=== PATIENT | male | born 1965 | race Caucasian/White ===

== ENCOUNTER 2021-08-26 10:58 | Outpatient (CLI) | payer BC, SELFPAY ==
[2021-08-26 11:27] LABS: Basophils Percent Auto 2.1 % (0.0-1.0); Eosinophils Absolute Auto 0.94 K/mm3 (0.02-0.50); Eosinophils Percent Auto 9.8 % (1.0-6.0); Hemoglobin 17.8 g/dL (14.0-18.0); Immature Granulocyte Absolute 0.08 K/mm3 (0.00-0.00); Immature Granulocyte Percent A 0.8 % (0.0-0.0); Lymphocytes Absolute Auto 2.66 K/mm3 (1.10-4.50); Lymphocytes Percent Auto 27.8 % (18.0-42.0); Mean Corpuscular HGB Conc 35.6 g/dL (32.0-36.0); Mean Corpuscular Hemoglobin 31.2 pg (27.0-31.0); Mean Corpuscular Volume 87.7 fL (78.0-102.0); Mean Platelet Volume 9.9 fl (8.7-11.0); Monocytes Absolute Auto 0.55 K/mm3 (0.10-0.90); Monocytes Percent Auto 5.7 % (2.0-11.0); Neutrophils Absolute Auto 5.1 K/mm3 (1.7-7.2); Neutrophils Percent Auto 53.8 % (50.0-70.0); Platelet Count Result 272 K/mm3 (150-420); Red Cell Distribution Width 14.2 % (11.6-14.4); White Blood Count 9.6 K/mm3 (4.8-10.8)
[2021-08-26 11:43] LABS: Alanine Aminotransferase 32 U/L (16-63); Albumin Level 4.2 g/dL (3.4-5.0); Alkaline Phosphatase 76 U/L (46-116); Anion Gap 9 mmol/L (8-16); Aspartate Amino Transferase 11 U/L (15-37); Bilirubin,Total 0.5 mg/dL (0.00-1.00); Blood Urea Nitrogen 14 mg/dL (7-18); Calcium 9.5 mg/dL (8.5-10.1); Carbon Dioxide 29 mmol/L (21-32); Chloride 100 mmol/L (98-108); Estimated Glomerular Filt Rate > 60; Glucose 104 mg/dL (70-99); Magnesium 2.2 mg/dL (1.8-2.4); Osmolality Calculated 286 mOsm/kg (285-295); Phosphorus 3.3 mg/dL (2.6-4.7); Potassium 4.6 mmol/L (3.5-5.1); Sodium 138 mmol/L (136-145); Total Protein 7.6 g/dL (6.4-8.2)
== END 2021-08-26 10:59 | disposition home or self-care (01) ==
PROVIDERS: PCP Nurse Practitioner Family; Visit Provider Nurse Practitioner Family
DX: I61.9 Nontraumatic intracerebral hemorrhage, unspecified (principal); G45.9 Transient cerebral ischemic attack, unspecified
CPT/HCPCS: 36415; 80053; 83735; 84100; 85025

== ENCOUNTER 2021-08-27 08:32 | Outpatient (CLI) | payer BC, SELFPAY ==
--- NOTE | ~2021-08-27 | CT_ITS ---
EXAMINATION: CT brain wo con EXAM DATE: 08/27/2021 08:49 INDICATION: I61.9 - Nontraumatic intracerebral hemorrhage, unspecified. Headaches. Intermittent. Left arm paresthesia. TECHNIQUE: Spiral CT of the head was performed without contrast. Axial, coronal and sagittal images were reviewed. The dose-length product (DLP) for this examination was 605.33 mGy-cm. The exposure w as tailored according to patient size, and iterative reconstruction (ASIR) was used as additional dos e reduction technique. There is no prior study for comparison. FINDINGS: There is no acute intraparenchymal hemorrhage. No evidence of intraparenchymal brain mass lesion. No evidence of acute infarction. There is no mass effect or midline shift. The ventricles are normal in size. There are no extra-axial collections. There are no acute calvarial fractures. T he orbits are unremarkable. Soft tissue is unremarkable. The visualized sinuses and mastoid air jagruti ls are well aerated. IMPRESSION: No acute intracranial findings. Reviewed, dictated and finalized at location A. [employer]
== END 2021-08-27 08:33 | disposition home or self-care (01) ==
PROVIDERS: PCP Nurse Practitioner Family; Visit Provider Nurse Practitioner Family
DX: I61.9 Nontraumatic intracerebral hemorrhage, unspecified (principal); G45.9 Transient cerebral ischemic attack, unspecified
CPT/HCPCS: 70450

== ENCOUNTER 2021-10-22 11:46 | Outpatient (CLI) | payer BC, SELFPAY ==
--- NOTE | ~2021-10-22 | XR_ITS ---
EXAMINATION: XR knee RT 3V DATE: 10/22/2021 12:02 INDICATION: Right knee pain TECHNIQUE: Three views of the right knee were obtained. COMPARISON: None. FINDINGS: Alignment is normal. No fracture or osteochondral lesion. Joint spaces are normal with no e rosions. No joint effusion/synovitis. Soft tissues are unremarkable. IMPRESSION: 1. No acute osseous abnormality. Reviewed, dictated and finalized at location B.
== END 2021-10-22 11:47 | disposition home or self-care (01) ==
LOC: CHSIMG 11:48
PROVIDERS: PCP Nurse Practitioner Family; Visit Provider Nurse Practitioner Family
DX: M25.561 Pain in right knee (principal)
CPT/HCPCS: 73562

== ENCOUNTER 2021-11-02 07:48 | Outpatient (CLI) | payer BC, SELFPAY ==
--- NOTE | ~2021-11-02 | MR_ITS ---
EXAMINATION: MR knee RT wo con DATE: 11/02/2021 09:41 INDICATION: Right knee pain. TECHNIQUE: Magnetic resonance imaging (MRI) of the right knee was performed without intravenous contr ast. Sequences included axial PD-weighted FS FSE, coronal PD-weighted FSE and PD-weighted FS FSE, sag ittal PD-weighted FSE, and sagittal T2-weighted FS FSE. COMPARISON: Right knee radiographs 10/22/2021 FINDINGS: Medial compartment: Medial meniscus is normal. There is cartilage surface irregularity of femoral condyle and tibial cond yle. Lateral compartment: Lateral meniscus is normal. There is cartilage surface irregularity of tibial condyle. Femoral cartil age is normal. Patellofemoral compartment: Patellar cartilage is normal. Trochlear cartilage is normal. Ligaments and tendons: The anterior and posterior cruciate ligaments are normal. Medial collateral ligament and lateral benjamin ateral ligament complex are normal. There is mild patellar tendinopathy. Fluid: There is a small knee joint effusion. Osseous/other: There is edema-like marrow signal intensity in medial tibial condyle and intercondylar eminence. IMPRESSION: 1. Edema-like marrow signal intensity in medial tibial condyle and intercondylar eminence, likely str ess reaction. No fracture line identified. 2. Mild chondrosis of medial and lateral compartments. 3. Small knee joint effusion. Reviewed, dictated and finalized at location E. IMPRESSION: 1. Edema-like marrow signal intensity in medial tibial condyle and intercondyla r eminence, likely stress reaction. No fracture line identified. 2. Mild chondrosis of medial and lateral compartments. 3. Small knee joint effusion.
== END 2021-11-02 07:49 | disposition home or self-care (01) ==
LOC: CHSIMG 07:49
PROVIDERS: PCP Nurse Practitioner Family; Visit Provider Nurse Practitioner Family
DX: M25.561 Pain in right knee (principal)
CPT/HCPCS: 73721

== ENCOUNTER 2022-01-22 12:18 | Outpatient (CLI) | payer BC, SELFPAY ==
[2022-01-22 12:37] LABS: Basophils Absolute Auto 0.13 K/mm3 (0.00-0.10); Basophils Percent Auto 1.3 % (0.0-1.0); Eosinophils Absolute Auto 0.57 K/mm3 (0.02-0.50); Eosinophils Percent Auto 5.7 % (1.0-6.0); Hematocrit 47.2 % (40.0-54.0); Hemoglobin 16.7 g/dL (14.0-18.0); Immature Granulocyte Absolute 0.08 K/mm3 (0.00-0.00); Immature Granulocyte Percent A 0.8 % (0.0-0.0); Lymphocytes Absolute Auto 1.32 K/mm3 (1.10-4.50); Lymphocytes Percent Auto 13.1 % (18.0-42.0); Mean Corpuscular HGB Conc 35.4 g/dL (32.0-36.0); Mean Corpuscular Hemoglobin 30.9 pg (27.0-31.0); Mean Corpuscular Volume 87.2 fL (78.0-102.0); Mean Platelet Volume 9.6 fl (8.7-11.0); Monocytes Absolute Auto 0.61 K/mm3 (0.10-0.90); Monocytes Percent Auto 6.1 % (2.0-11.0); Neutrophils Absolute Auto 7.4 K/mm3 (1.7-7.2); Platelet Count Result 232 K/mm3 (150-420); Red Blood Count 5.41 M/mm3 (4.70-6.10); Red Cell Distribution Width 14.3 % (11.6-14.4); White Blood Count 10.1 K/mm3 (4.8-10.8)
[2022-01-22 13:00] LABS: Alanine Aminotransferase 35 U/L (16-63); Alkaline Phosphatase 87 U/L (46-116); Anion Gap 9 mmol/L (8-16); Aspartate Amino Transferase 20 U/L (15-37); Blood Urea Nitrogen 13 mg/dL (7-18); Calcium 8.8 mg/dL (8.5-10.1); Carbon Dioxide 27 mmol/L (21-32); Chloride 101 mmol/L (98-108); Cholesterol 193 mg/dL (0-200); Estimated Glomerular Filt Rate 58; Glucose 102 mg/dL (70-99); HDL Direct 40 mg/dL (40-60); LDL Cholesterol Calculated 99 mg/dL (<130); Osmolality Calculated 284 mOsm/kg (285-295); Potassium 3.5 mmol/L (3.5-5.1); Sodium 137 mmol/L (136-145); Total Protein 7.6 g/dL (6.4-8.2); Triglycerides 272 mg/dL (0-150)
== END 2022-01-22 12:19 | disposition home or self-care (01) ==
LOC: CHSLAB 12:20
PROVIDERS: PCP Nurse Practitioner Family; Visit Provider Nurse Practitioner Family
DX: G45.9 Transient cerebral ischemic attack, unspecified (principal); E87.1 Hypo-osmolality and hyponatremia; E83.42 Hypomagnesemia
CPT/HCPCS: 36415; 80053; 80061; 83735; 85025

== ENCOUNTER 2022-02-20 06:34 | Outpatient (CLI) | payer BC, SELFPAY ==
[2022-02-20 08:08] LABS: Basophils Absolute Auto 0.2 K/mm3 (0.0-0.1); Basophils Percent Auto 1.5 % (0.2-1.2); Eosinophils Absolute Auto 1.2 K/mm3 (0-0.3); Eosinophils Percent Auto 9.7 % (0-4.4); Hematocrit 48.3 % (42.0-52.0); Hemoglobin 16.5 g/dL (14.0-18.0); Immature Granulocyte Absolute 0.11 K/mm3 (0.00-0.031); Immature Granulocyte Percent A 0.9 % (0-0.5); Lymphocytes Absolute Auto 3.31 K/mm3 (0.9-3.2); Lymphocytes Percent Auto 28.1 % (18.3-44.2); Mean Corpuscular HGB Conc 34.2 g/dl (32-36); Mean Corpuscular Hemoglobin 30.7 pg (26-34); Mean Corpuscular Volume 89.9 fl (80-100); Mean Platelet Volume 9.8 fl (7.4-10.4); Monocytes Absolute Auto 0.7 K/mm3 (0.1-0.6); Monocytes Percent Auto 5.9 % (2.6-8.5); Neutrophils Absolute Auto 6.4 K/mm3 (1.3-6.7); Neutrophils Percent Auto 53.9 % (45.5-73.1); Platelet Count Result 244 k/mm3 (150-375); Red Blood Count 5.37 M/mm3 (4.6-6.20); Red Cell Distribution Width 14.9 % (11.5-14.5); White Blood Count 11.8 K/mm3 (4.5-10.0)
[2022-02-20 08:17] LABS: Alanine Aminotransferase 30 U/L (6-50); Albumin Level 4.2 g/dL (3.5-5.1); Alkaline Phosphatase 64 U/L (38-126); Anion Gap 6 mmol/L (8-16); Aspartate Amino Transferase 27 U/L (17-59); Bilirubin,Total 0.7 mg/dL (0.2-1.3); Blood Urea Nitrogen 15 mg/dL (9-20); Carbon Dioxide 27 mmol/L (22-30); Chloride 104 mmol/L (98-107); Estimated Glomerular Filt Rate > 60; Glucose 108 mg/dL (65-110); Potassium 4.7 mmol/L (3.4-5.0); Sodium 137 mmol/L (137-145)
--- NOTE | 2022-02-20 10:45 | NEURO_ITS ---
This report was moved to the correct visit on 02/20/22. Original report was signed by Yovanny Cohen MD 02/20/22 [id number]. Neurology EEG Report General Information Date of Study: 02/20/22 TEST EEG DIAGNOSIS amnesia CONDITION OF RECORDING awake drowsy and sleep EEG NUMBER [id number] CLINICAL HISTORY patient reports he had a brain bleed about a year ago and is having trouble with short-term memory EEG DESCRIPTION basic resting occipital frequency consists of large amount of well-organized 9 to 11 hertz per 2nd alpha admixed with low-voltage 15 to 18 hertz per 2nd beta. During drowsiness low-voltage beta activity seen diffusely admixed with waxing and waning posterior alpha rhythm. Bilateral symmetrical sleep activity seen during sleep, hyperventilation not done. Photic stimulation produced normal drive. Non paroxysmal. Nonfocal. Nonlateralizing., IMPRESSION Normal eeg This dictation may have been done utilizing a voice recognition system. Attempts have been made to correct errors. However, there may be uncorrected grammatical, spelling, and recognition errors present. Report Initialized date/time: Yovanny Cohen MD 02/20/22 / 1045 Electronically signed by: Yovanny Cohen MD 02/20/22 2152 [facility]
== END 2022-02-20 06:35 | disposition home or self-care (01) ==
PROVIDERS: PCP Nurse Practitioner Family; Visit Provider Psychiatry & Neurology Neurology
DX: R41.3 Other amnesia (principal)
CPT/HCPCS: 36415; 80053; 85025; 95816

== ENCOUNTER 2022-02-23 10:30 | Outpatient (CLI) | payer BC, SELFPAY ==
--- NOTE | 2022-02-20 10:41 | WPDNEUROLOGY ---
Neurology EEG Report General Information Date of Study: 02/20/22 TEST EEG DIAGNOSIS amnesia CONDITION OF RECORDING awake drowsy and sleep EEG NUMBER [id number] CLINICAL HISTORY patient reports he had a brain bleed about a year ago and is having trouble with short-term memory EEG DESCRIPTION basic resting occipital frequency consists of large amount of well-organized 9 to 11 hertz per 2nd alpha admixed with low-voltage 15 to 18 hertz per 2nd beta. During drowsiness low-voltage beta activity seen diffusely admixed with waxing and waning posterior alpha rhythm. Bilateral symmetrical sleep activity seen during sleep, hyperventilation not done. Photic stimulation produced normal drive. Non paroxysmal. Nonfocal. Nonlateralizing., IMPRESSION Normal eeg
--- NOTE | ~2022-02-23 | MR_ITS ---
EXAMINATION: MR brain/brain stem wo/w con DATE: 02/23/2022 11:22 INDICATION: Memory loss TECHNIQUE: Magnetic resonance imaging (MRI) of the brain and brainstem was performed without and with 20 mL Multihance intravenous contrast. Sequences included sagittal and axial T1-weighted SE, axial d iffusion-weighted FS SE, axial 3D SWAN, axial T2-weighted FLAIR, and axial T2-weighted FSE. Postcontr ast axial and coronal T1-weighted SE was obtained. Apparent diffusion coefficient (ADC) maps were cre ated. COMPARISON: Head CT dated 08/27/2021 FINDINGS: There are no areas of restricted diffusion to suggest acute infarction. No intracranial hemorrhage or abnormal intracranial mass lesion. There are a few scattered small foci of nonspecific increased T2- weighted signal intensity in the cerebral white matter, predominantly involving the deep and perivent ricular white matter which is within normal limits for age. There are no intraparenchymal signal abno rmalities seen on the other pulse sequences. The ventricles are symmetric and normal in size. There a re no abnormal extra-axial fluid collections. Flow voids are seen in the cerebral arteries on the T2- weighted sequences consistent with their expected patency. Mild mucoperiosteal thickening in the bila teral ethmoid sinuses. Visualized orbits and soft tissues are unremarkable. There are no areas of abn ormal enhancement on the post contrast images. IMPRESSION: 1. Normal for age brain MR. No acute intracranial process. Reviewed, dictated and finalized at location A.
== END 2022-02-23 10:31 | disposition home or self-care (01) ==
PROVIDERS: PCP Nurse Practitioner Family; Visit Provider Psychiatry & Neurology Neurology
DX: R41.3 Other amnesia (principal)
CPT/HCPCS: 70553; A9577

== ENCOUNTER 2023-10-27 10:59 | Outpatient (CLI) | payer OTHER, SELFPAY ==
--- NOTE | ~2023-10-27 | XR_ITS ---
XR lumbar spine 2-3V 10/27/2023 11:19 Indication: Back pain. Sciatica. Procedure: 3 views lumbar spine Comparison: No prior studies for comparison. Findings: Vertebral body heights are maintained. There is disc narrowing at all lumbar levels. No fra cture or traumatic malalignment. Pedicles intact. Sacral foramen are symmetric. Impression: 1: Mild-moderate lumbar spondylosis. Reviewed, dictated and finalized at location L. Impression: 1: Mild-moderate lumbar spondylosis.
== END 2023-10-27 11:00 | disposition home or self-care (01) ==
LOC: CHSIMG 11:03
PROVIDERS: PCP Nurse Practitioner Family; Visit Provider Nurse Practitioner Family
DX: M54.41 Lumbago with sciatica, right side (principal); M43.06 Spondylolysis, lumbar region
CPT/HCPCS: 72100

== ENCOUNTER 2025-05-02 12:22 | Outpatient (CLI) | payer BC, SELFPAY ==
--- OUTSIDE RECORDS SUMMARY | 2024-12-29 04:00 | XMS_ITS ---
Author Organization [facility] Address [address] [place], [place] [id number] Care Team Providers Care Manufacturing Operator Name Role Phone CUADRAVALERIE SERARNO Unavailable [phone] Amanda Bautista Unavailable Unavailable Allergies Allergen (clinical drug ingredient) Drug/Non Drug Allergy documented on EMR Reaction Allergy Type Onset Date Status Penicillin Unknown Drug Allergy Active REASON FOR VISIT ganglion left ankle and foot Medications Medication SIG (Take, Route, Frequency, Duration) Notes Start Date End Date Status LORazepam 1 MG Oral; Duration: 20 Days Active QUEtiapine Fumarate 200 MG Oral; Duration: 30 Days Active Meloxicam 15 MG Oral; Duration: 30 Days Active Vital Signs Height 69 in 12/29/2024 Weight 220 lbs 12/29/2024 BMI 32.48 kg/m2 12/29/2024 Height-cm 175.26 cm 12/29/2024 Weight-kg 99.79 kg 12/29/2024 Encounters Encounter Location Date Provider Diagnosis [address] [id number] 12/29/2024 VALERIE CUADRA Plantar fascial fibromatosis M72.2 ; Hallux rigidus, left foot M20.22 and Pain in right foot M79.671 Assessments Encounter Date Diagnosis (ICD Code) Assessment Notes Treatment Notes Treatment Clinical Notes Section Notes 12/29/2024 Plantar fascial fibromatosis (ICD-10 - M72.2) Heel Pain: I discussed anti-inflammato ry treatment options and various means of pronation control with the patient. I educated the patient on icing and stretching, supportive shoegear, and the use of orthotic devices. Following skin prep, a total of 3 ccs of a 1-1-1 mix of 0.5% marcaine plain, 1% lidocaine plain, and Kenalog was injected left origin of plantar fascial band 12/29/2024 Hallux rigidus, left foot (ICD-10 - M20.22) Did not have size 13 pre-fabricated arch supports. Patient will purchase online and transition into use in supportive shoes. Educated patient on their use. Consider boots or ankle brace at work where he walks 8 miles on concrete and gets increased pain from back and feet during shifts. 12/29/2024 Pain in right foot (ICD-10 - M79.671) rest ice and stretch daily. Patient was instructed to try an OTC topical pain reliever/anti-i nflammatory such as Voltaren Gel, Aspercreme with Lidocaine, or Biofreeze etc over the affected areas. Spot test on hand or somewhere visible prior to starting to watch for possible rash/allergic reaction Plan Of Treatment Treatment Notes Assessment Notes Plantar fascial fibromatosis Heel Pain: I discussed anti-inflammatory treatment options and various means of pronation control with the patient. I educated the patient on icing and stretching, supportive shoegear, and the use of orthotic devices. Following skin prep, a total of 3 ccs of a 1-1-1 mix of 0.5% marcaine plain, 1% lidocaine plain, and Kenalog was injected left origin of plantar fascial band Hallux rigidus, left foot Did not have size 13 pre-fabricated arch supports. Patient will purchase online and transition into use in supportive shoes. Educated patient on their use. Consider boots or ankle brace at work where he walks 8 miles on concrete and gets increased pain from back and feet during shifts. Pain in right foot rest ice and stretch daily. Patient was instructed to try an OTC topical pain reliever/anti-inflammatory such as Voltaren Gel, Aspercreme with Lidocaine, or Biofreeze etc over the affected areas. Spot test on hand or somewhere visible prior to starting to watch for possible rash/allergic reaction Progress Notes * Ki BRODYDOB: [birth year] (59 yo M)Acc No.[id number]:12/29/2024 Progress Notes Patient: Ki NATION Provider: Walter CUADRA DOB:1965 A ge:59 Y S ex:Male Date:12/29/2024 Address:[address] Subjective: * Chief Complaints: * 1 . Ganglion left ankle and foot. * HPI: H PI: New Complaint P nabil presents for a new patient consultation. Patient complains of an issue to a possible ganglion cyst on the bottom of his left foot. Patient states this has been present for 1 year and has grown in size over time. Patient states they lump does not cause him any pain, but he has developed some pain in the ball of his foot from compensating to not step of spot. MA LB. * ROS: G eneral / Constitutional: Patient denies f ever, chills, weight loss. P atient complains of p ain. M usculoskeletal: Patient complains of b ack pain, arthritis, joint stiffness, heel pain, arch pain, high arch feet/ cavus. P eripheral Vascular: Patient denies b lood clots in legs, cold extremities, ulceration of feet. S kin: Patient denies a thletes foot, fungal nails, itching, discoloration, rash. P atient complains of l umps. N eurologic: Patient denies b alance difficulty, Numbness. ? * Medical History: Andrew ramirez. * Surgical History: h emmorrhoidectomy . * Family History: N o Family History documented.. * Social History: D rugs/Alcohol: D o you drink alcohol?: Yes. * Medications: T aking Meloxicam 15 MG Tablet Oral , Taking QUEtiapine Fumarate 200 MG Tablet Oral , Taking LORazepam 1 MG Tablet Oral , Medication List reviewed and reconciled with the patient * Allergies: P enicillin. Objective: * Vitals: S hoe Size: 13, Wt:220lbs, Wt-k.79 kg, Ht: 69 in, Ht-cm: 175.26 cm, BMI:32.48Index, Body Surface Area: 2.2. * Examination: C onstitutional: Constitutional T he patient is awake, alert, well developed, well groomed and well nourished.. D ermatologic: Skin findings: l eft, foot with single soft tissue lesion measures 2x2x0.2 cm protrusion along medial plantar fascial band moving with ROM of 1st mtpj without pain. Pain on direct pressure/ palpation and weight bearing. No palpable heat or secondary lesions or bony changes noted. No lesions over joints. . M usculoskeletal: Muscle Strength M uscle strength is 5/5 in regards to dorsiflexion, plantarflexion, inversion, and eversion in bilateral lower extremities.. Foot Structure T he foot structure is noted to be f lexible c avus bilateral.. Pain on palpation T here is pain on palpation of, medial band of the left plantar fascia near its attachment to the calcaneus.. Plantar Fascia T here is pain on palpation to the, medial band of the left plantar fascia, near its attachment to the calcaneus., There is mild pain on palpationwith lateral compression of the left calcaneus. No pain on ROM to ankle or STJ which is full..? 1st MPJ T he range of motion is, limited, painful at end range of dorsiflexion left foot.. N eurologic: Gross sensation G ross sensation is intact to light touch.? V ascular: Dorsalis pedis pulse: b ilateral, 2/4. Posterior tibial pulse: b ilaterally, 2/4. Capillary refill: b ilaterally, less than 3 seconds. Edema: n o edema. X -Ray: Left Foot R x for 3 views (AP, Medial Oblique, and lateral view) weightbearing of the left foot to be done at outside facility and bring report to next visit..? Assessment: * Assessment: 1. P lantar fascial fibromatosis - M72.2 (Primary) 2 . H allux rigidus, left foot - M20.22 3 . P ain in right foot - M79.671 Plan: * Treatment: 2. H allux rigidus, left foot Notes: Did not have size 13 pre-fabricated arch supports. Patient will purchase online and transition into use in supportive shoes. Educated patient on their use. Consider boots or ankle brace at work where he walks 8 miles on concrete and gets increased pain from back and feet during shifts. 3. P ain in right foot Notes: rest ice and stretch daily. Patient was instructed to try an OTC topical pain reliever/anti-inflammatory such as Voltaren Gel, Aspercreme with Lidocaine, or Biofreeze etc over the affected areas. Spot test on hand or somewhere visible prior to starting to watch for possible rash/allergic reaction * Immunizations: Immunization record has been reviewed and updated. * Procedure Codes: 2 0550 INJ TENDON SHEATH/LIGAMENT, Modifiers: RT * Preventive Medicine: Counseling: S moking: P atient counselled on the dangers of tobacco use and urged to quit. 0 12/29/2024. * Billing Information: * Visit Code: 77250 Office Visit, New Pt., Level 3. Modifiers: 25 * Procedure Codes: 18535 INJ TENDON SHEATH/LIGAMENT. Modifiers: RT * Electronic signature of DEBORA CUADRA DPM on 05/02/2025 at 12:26 PM CDT Sign off status: Pending * Provider: Walter CUADRA Date: 0 12/29/2024 Generated for Arleen barboza/Michelle/eTransmitting on: 0 05/02/2025 12:26 PM CDT History and Physical Notes * HPI (History of Present Illness) Category Sub-Category Detail Notes Category Not es HPI New Complaint Patient presents for a new patient consultation. Patient complains of an issue to a possible ganglion cyst on the bottom of his left foot. Patient states this has been present for 1 year and has grown in size over time. Patient states they lump does not cause him any pain, but he has developed some pain in the ball of his foot from compensating to not step of spot. MA LB Examination Category Sub-Category Detail Notes Category Not es Constitutional Constitutional The patient is a wake, alert, well developed, well groomed and well nourished. Dermatologic Skin findings: left, foot with single soft tissue lesion measures 2x2x0.2 cm protrusion along medial plantar fascial band moving with ROM of 1st mtpj without pain. Pain on direct pressure/ palpation and weight bearing. No palpable heat or secondary lesions or bony changes noted. No lesions over joints. Musculoskeletal Muscle Strength Muscle strength is 5/5 in regards to dorsiflexion, plantarflexion, inversion, and eversion in bilateral lower extremities. Pain on palpation There is pain on pal pation of, medial band of the left plantar fascia near its attachment to the calcaneus. Plantar Fascia There is pain on pal pation to the, medial band of the left plantar fascia, near its attachment to the calcaneus., There is mild pain on palpationwith lateral compression of the left calcaneus. No pain on ROM to ankle or STJ which is full. 1st MPJ The range of motion is, limited, painful at end range of dorsiflexion left foot. Foot Structure The foot structure i s noted to be flexible cavus bilateral. Neurologic Gross sensation Gross sensation is intact to light touch X-Ray Left Foot Rx for 3 views ( AP, Medial Oblique, and lateral view) weightbearing of the left foot to be done at outside facility and bring report to next visit. Vascular Dorsalis pedis pulse: bilateral, 2/4 Posterior tibial pulse: bilaterally, 2/4 Capillary refill: bilaterally, less th an 3 seconds Edema: no edema
--- OUTSIDE RECORDS SUMMARY | 2025-01-19 03:40 | XMS_ITS ---
Author Organization [facility] Address [address] [place], [place] [address] Care Team Providers Care Linoleum Layer Helper Name Role Phone VENECIAVALERIE Unavailable [phone] Amanda Bautista Unavailable Unavailable Allergies Allergen (clinical drug ingredient) Drug/Non Drug Allergy documented on EMR Reaction Allergy Type Onset Date Status Penicillin Unknown Drug Allergy Active REASON FOR VISIT Plantar fasciitis fu Medications Medication SIG (Take, Route, Frequency, Duration) Notes Start Date End Date Status LORazepam 1 MG Oral; Duration: 20 Days Active QUEtiapine Fumarate 200 MG Oral; Duration: 30 Days Active Meloxicam 15 MG Oral; Duration: 30 Days Active Vital Signs Height 69 in 01/19/2025 Weight 220 lbs 01/19/2025 BMI 32.48 kg/m2 01/19/2025 Height-cm 175.26 cm 01/19/2025 Weight-kg 99.79 kg 01/19/2025 Encounters Encounter Location Date Provider Diagnosis [address] [id number] 01/19/2025 VALERIE CUADRA Hallux rigidus, left foot M20.22 ; Plantar fascial fibromatosis M72.2 ; Pain in right foot M79.671 ; Atherosclerosis of [place] arteries of extremities with intermittent claudication, bilateral legs I70.213 and Tinea unguium B35.1 Assessments Encounter Date Diagnosis (ICD Code) Assessment Notes Treatment Notes Treatment Clinical Notes Section Notes 01/19/2025 Hallux rigidus, left foot (ICD-10 - M20.22) Did not have size 13 pre-fabricated arch supports. Patient purchased online and transition into use in supportive shoes. Educated patient on their use. Consider boots or ankle brace at work where he walks 8 miles on concrete and gets increased pain from back and feet during shifts. 01/19/2025 Plantar fascial fibromatosis (ICD-10 - M72.2) Heel Pain: I discussed anti-inflammat ory treatment options and various means of pronation control with the patient. I educated the patient on icing and stretching, supportive shoegear, and the use of orthotic devices. Discussed boots during work 01/19/2025 Pain in right foot (ICD-10 - M79.671) rest ice and stretch daily. Patient was instructed to try an OTC topical pain reliever/anti- inflammatory such as Voltaren Gel, Aspercreme with Lidocaine, or Biofreeze etc over the affected areas. Spot test on hand or somewhere visible prior to starting to watch for possible rash/allergic reaction 01/19/2025 Atherosclerosis of [place] arteries of extremities with intermittent claudication, bilateral legs (ICD-10 - I70.213) Check and protect LE bilateral daily. Call if any changes or concerns. 01/19/2025 Tinea unguium (ICD-10 - B35.1) FUNGAL TOENAILS: Discussed various treatment options for fungal toenails including debridement, topical antifungals, oral antifungals, toenail avulsion, or toenail matrixectomy. Plan Of Treatment Treatment Notes Assessment Notes Hallux rigidus, left foot Did not have size 13 pre-fabricated arch supports. Patient purchased online and transition into use in supportive shoes. Educated patient on their use. Consider boots or ankle brace at work where he walks 8 miles on concrete and gets increased pain from back and feet during shifts. Plantar fascial fibromatosis Heel Pain: I discussed anti-inflammatory treatment options and various means of pronation control with the patient. I educated the patient on icing and stretching, supportive shoegear, and the use of orthotic devices. Discussed boots during work Pain in right foot rest ice and stretch daily. Patient was instructed to try an OTC topical pain reliever/anti-inflammatory such as Voltaren Gel, Aspercreme with Lidocaine, or Biofreeze etc over the affected areas. Spot test on hand or somewhere visible prior to starting to watch for possible rash/allergic reaction Atherosclerosis of [place] ar teries of extremities with intermittent claudication, bilateral legs Check and protect LE bilateral daily. Call if any changes or concerns. Tinea unguium FUNGAL TOENAILS: Dis cussed various treatment options for fungal toenails including debridement, topical antifungals, oral antifungals, toenail avulsion, or toenail matrixectomy. Next Appt Details Follow Up: 3 Months, Reason: General Care Progress Notes * Ki BRODYDOB: [birth year] (59 yo M)Acc No.[id number]:01/19/2025 Patient: Ki NATION Provider: Walter CUADRA :1965 A ge:59 Y S ex:Male Date:01/19/2025 Address:[address] Subjective: * Chief Complaints: * 1 . Plantar fasciitis fu. * HPI: H PI: Follow Up Visit P nabil presents for follow-up visit for a knot on the bottom of the left foot. Patient states that he purchased the inserts recommended and that they have helped slightly. He states there is not as much pressure on the knot anymore. , MA: [facility]. * ROS: G eneral / Constitutional: Patient [...] alance difficulty, Numbness. ? * Medical History: S ashley. * Surgical History: h emmorrhoidectomy . * Social History: D rugs/Alcohol: D o [...] bony changes noted. No lesions over joints. bilateral,, Skin is thin, atrophic and lacking pedal hair. Nail pathology: N ails 1-5 bilateral are elongated, thick, discolored, and dystrophic with subungual debris. They are painful to palpation. ? M usculoskeletal: Muscle Strength M uscle strength [...] P ain in right foot - M79.671 4 . A therosclerosis of [place] arteries of extremities with intermittent claudication, bilateral legs - I70.213 5 . T inea unguium - B35.1 Plan: * Treatment: 2. H allux rigidus, left foot Notes: Did not have size 13 pre-fabricated arch supports. Patient purchased online and transition into use in supportive [...] starting to watch for possible rash/allergic reaction 4. A therosclerosis of [place] arteries of extremities with intermittent claudication, bilateral legs Notes: Check and protect LE bilateral daily. Call if any changes or concerns. 5. T inea unguium Notes: FUNGAL TOENAILS: Discussed various treatment options for fungal toenails including debridement, topical antifungals, oral antifungals, toenail avulsion, or toenail matrixectomy. * Follow Up: 3 Months (Reason: General Care) * Billing Information: * Visit Code: 69088 Office Visit, Est Pt., Level 3. * Procedure Codes: * Electronic signature of DEBORA CUADRA DPM on 05/02/2025 at 12:26 PM CDT Sign off status: Pending * Provider: Walter CUADRA Date: 01/19/2025 Generated for Arleen Joyce on: 0 05/02/2025 12:26 PM CDT History and Physical Notes * HPI (History of Present Illness) Category Sub-Category Detail Notes Category Not es HPI Follow Up Visit Patient presents for follow-up visit for a knot on the bottom of the left foot. Patient states that he purchased the inserts recommended and that they have helped slightly. He states there is not as much pressure on the knot anymore. , MA: [facility] Examination Category Sub-Category Detail Notes Category Not [...] bony changes noted. No lesions over joints. bilateral,, Skin is thin, atrophic and lacking pedal hair Nail pathology: Nails 1-5 bilateral are elongated, thick, discolored, and dystrophic with subungual debris. They are painful to palpation Musculoskeletal Muscle Strength Muscle strength is 5/5 [...]
--- OUTSIDE RECORDS SUMMARY | 2025-03-23 03:50 | XMS_ITS ---
Author Organization [facility] Address [address] [place], [place] [address] Care Team Providers Care Hand Buffer Name Role Phone VALERIE CUADRA Unavailable [phone] Amanda Bautista Unavailable Unavailable REASON FOR VISIT *General care Encounters Encounter Location Date Provider Diagnosis [address] [id number] 03/23/2025 VALERIE CUADRA Plan Of Treatment No Information Progress Notes * Ki BRODYDOB: [birth year] (59 yo M)Acc No.[id number]:03/23/2025 Patient: Ki NATION Provider: Walter CUADRA :1965 A ge:59 Y S ex:Male Date:03/23/2025 Address:[place] [id number] Subjective: * Chief Complaints: * 1 . *General care. * Medical History: Objective: * Vitals: Assessment: Plan: * Treatment: * Billing Information: * Visit Code: * Procedure Codes: * Electronic signature of DEBORA CUADRA DPM on 05/02/2025 at 12:25 PM CDT Sign off status: Pending * Provider: Walter CUADRA Date: 03/23/2025 Generated for Kirai ng/Facorig/eTransmitting on: 0 05/02/2025 12:25 PM CDT
--- NOTE | ~2025-05-02 | CT_ITS ---
EXAMINATION: CT brain stanley butt, 05/02/2025 12:20 CDT HISTORY: I69.319 - Unspecified symptoms and signs involving cognit... COMPARISON: No comparisons available. Technique: Axial images obtained of the brain without contrast. One or more of the following dose reduction techniques were used: automated exposure control, adjustment of the mA and/or kV according to patient size, use of iterative reconstruction technique. Findings: No acute infarct or parenchymal hemorrhage. No abnormal mass or mass effect. No midline shift. No extra-axial fluid collections. No hydrocephalus. Mastoid air cells unremarkable. Sinuses and orbits unremarkable. No acute fracture. No significant facial or scalp soft tissue swelling evident. No radiopaque foreign body is seen. Impression: 1.No acute intracranial abnormality. Reviewed, dictated and finalized at location P. Impression: 1.No acute intracranial abnormality.
--- OUTSIDE RECORDS SUMMARY | 2025-05-02 12:26 | XMS_ITS | Clinical Summary ---
Author Organization [facility] Address [address] [place] [address] Care Team Providers Care Automatic Spinning Lathe Setter Name Role Phone Juan Miguel Jacobo MD Unavailable [phone] Manish Bhatt MD Primary Care Provider [phone] Allergies Active Allergy Reactions Criticality Noted Date Comments Bee Venom Unknown 11/03/2019 Penicillins Rash Low 03/08/2014 Medications LORazepam 0.5 MG tablet Take 1 tablet by mouth daily. 10/19/2019 Active traZODone 50 MG tablet Take 1 tablet by mouth every evening. 09/23/2019 Active calcium carbonate 500 MG chewable tablet Chew 1 tablet by mouth daily. Active Active Problems Problem Noted Date Diagnosed Date Other chest pain 11/03/2019 Family History Medical History Relation Comments Heart Attack Father Stent Cardiac Father CABG Mother Relation Status Comments Father Alive Mother Alive Social History Tobacco Use Types Packs/Day Years Used Date Smoking Tobacco: Never Smokeless Tobacco: Current Alcohol Use Standard Drinks/Week Comments Yes 0 (1 standard drink = 0.6 oz pur e alcohol) AUDIT-C Answer Date Recorded Frequency of Alcohol Consumption 4 or more times a week 01/23/2020 Average Number of Drinks Not on file 020 Frequency of Binge Drinking Not on file 01/02 Sex and Gender Information Value Date Recorded Sex Assigned at Not on file Legal Sex Male 8:01 AM CDT Gender Identity Not on file Sexual Orientation Not on file 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 Not on file Not on file Last Filed Vital Signs Vital Sign Reading Time Taken Comments Blood Pressure 98/76 11/03/2019 2:14 PM CDT Pulse 72 11/03/2019 2:14 PM CDT Temperature - - Respiratory Rate 16 11/03/2019 2:14 PM CDT Oxygen Saturation 97% 11/03/2019 2:14 PM CDT Inhaled Oxygen Concentration - - Weight 100.6 kg (221 lb 12.8 oz) 11/03/2019 2:14 PM CDT Height 175.3 cm (5' 9) 11/03/2019 2:14 PM CDT Body Mass Index 32.75 11/03/2019 2:14 PM CDT Plan of Treatment Health Maintenance Due Date Last Done Comments Colorectal Cancer Screening Colonoscopy (10 Years) 1965 Annual Physical 11/24/1970 Hepatitis C 11/24/1985 DTaP, Tdap and Td Vaccines ( 1 - Tdap) 11/24/1986 Hepatitis B Vaccines (1 of 3 - 19+ 3-dose series) 11/24/1986 Pneumococcal Vaccine: 50+ Years (1 of 1 - PCV) 11/24/2017 Zoster Vaccines (1 of 2) 11/24/2017 COVID-19 Vaccine (3 - 2024-2 6 season) 2025 09/15/2020, 08/18/2020 Meningococcal B Vaccine Aged Out No l onger eligible based on patient's age to complete this topic Meningococcal Vaccine Aged Out No mandy ilda eligible based on patient's age to complete this topic RSV Immunizations Under 20 Months Aged Out No longer eligible b ased on patient's age to complete this topic Insurance [employer] Care Teams Automatic Spinning Lathe Setter Relationship Specialty Start Date End Date Manish Bhatt MD [address] [place] [address] PCP - General FAMILY PRACTICE 11/02/19 Juan Miguel Jacobo MD [facility] [address] [place] [address] [place] Lieutenant Governor CARDIOVASCULAR DISEASE 11/01/19
--- OUTSIDE RECORDS SUMMARY | 2025-05-02 12:26 | XMS_ITS | Patient Health Record ---
Author Organization [facility] Address [address] [place], [place] [address] Care Team Providers Care Luggage Repairer Name Role Phone CUADRAVALERIE SERRANO Unavailable [phone] Amanda Bautista Unavailable Unavailable Allergies Allergen (clinical drug ingredient) Drug/Non Drug Allergy documented on EMR Reaction Allergy Type Onset Date Status Penicillin Unknown Drug Allergy Active Reason For Referral No Information Medications Medication SIG (Take, Route, Frequency, Duration) Notes Start Date End Date Status LORazepam 1 MG Oral; Duration: 20 Days Active QUEtiapine Fumarate 200 MG Oral; Duration: 30 Days Active Meloxicam 15 MG Oral; Duration: 30 Days Active Immunizations Vaccine Route Administration Date Status Comme nts Moderna Covid-19 Vaccine 1st dose Unknown 08/18/2020 Ad ministered Moderna Covid-19 Vaccine 1st dose Unknown 09/15/2020 Ad ministered Vital Signs Height-cm 175.26 cm 01/19/2025 Weight-kg 99.79 kg 01/19/2025 Height 69 in 01/19/2025 Weight 220 lbs 01/19/2025 BMI 32.48 kg/m2 01/19/2025 Encounters Encounter Location Date Provider Diagnosis [address] [id number] 12/29/2024 VALERIE CUADRA Plantar fascial fibromatosis M72.2 ; Hallux rigidus, left foot M20.22 and Pain in right foot M79.[address] [id number] 01/19/2025 VALERIE CUADRA Hallux rigidus, left foot M20.22 ; Plantar fascial fibromatosis M72.2 ; Pain in right foot M79.671 ; Atherosclerosis of [place] arteries of extremities with intermittent claudication, bilateral legs I70.213 and Tinea unguium B35.1 [facility] [address] [place], [place] [id number] 01/15/2025 VALERIE CUADRA Assessments Encounter Date Diagnosis (ICD Code) Assessment Notes Treatment Notes Treatment Clinical Notes Section Notes 12/29/2024 Hallux rigidus, left foot (ICD-10 - M20.22) Did not have size 13 pre-fabricated arch supports. Patient will purchase online and transition into use in supportive shoes. Educated patient on their use. Consider boots or ankle brace at work where he walks 8 miles on concrete and gets increased pain from back and feet during shifts. 12/29/2024 Plantar fascial fibromatosis (ICD-10 - M72.2) [...] injected left origin of plantar fascial band 01/19/2025 Hallux rigidus, left foot (ICD-10 - [...] starting to watch for possible rash/allergic reaction 12/29/2024 Pain in right foot (ICD-10 - M79.671) rest ice and stretch daily. Patient was instructed to try an OTC topical pain reliever/anti- inflammatory such as Voltaren Gel, Aspercreme with Lidocaine, or Biofreeze etc over the affected areas. Spot test on hand or somewhere visible prior to starting to watch for possible rash/allergic reaction 01/19/2025 Atherosclerosis of [place] arteries of extremities with intermittent claudication, bilateral legs (ICD-10 - I70.213) Check and protect LE bilateral daily. Call if any changes or concerns. 01/19/2025 Tinea unguium (ICD-10 - B35.1) FUNGAL TOENAILS: Discussed various treatment options for fungal toenails including debridement, topical antifungals, oral antifungals, toenail avulsion, or toenail matrixectomy. Plan Of Treatment No Information Insurance Providers Payer Name Payer Address Payer Phone Subscriber Number Group Number Insured Name Patient Relationship to Insured Coverage Start Date Coverage End Date [facility] ([facility]) ATTN CLAIMS [address] [place] [address] [id number] Ki Orellana Self - patient is the insured Medical (General) History Medical History History ICD Code stroke Surgical History Surgery Date(Month/Year) hemmorrhoidectomy
--- OUTSIDE RECORDS SUMMARY | 2025-05-02 12:26 | XMS_ITS | Clinical Summary ---
Author Organization [facility] Address [address] [place] [address] Care Team Providers Care Public Services Assistant Name Role Phone Unknown, Notinfile Primary Care Provider Unavail able Allergies Active Allergy Reactions Criticality Noted Date Comments Venom-Honey Bee Unknown 12/28/2020 Penicillin G Anaphylaxis High 12/28/2020 Medications LORazepam (ATIVAN) 1 mg tablet Take by mouth Patient unsure of dose. States he takes as needed for anxiety. Active QUEtiapine (SEROquel) 50 mg tablet 04/22/2021 Active hydrOXYzine (ATARAX) 25 mg tablet 04/22/2021 Active Active Problems Problem Noted Date Diagnosed Date Complaints of memory disturbance 05/07/2021 ICH (intracerebral hemorrhage) 03/04/2021 Acute intractable headache 01/07/2021 Immunizations Immunization Administration Dates Next Due Moderna SARS-CoV-2 Monovalent Vaccination (12+ Y RS) 09/15/2020,08/18/2020 Surgical History Surgery Date Site/Laterality Comments HEMORRHOID SURGERY Medical History Medical History Date Comments Anxiety Intracerebral hemorrhage (HCC) Family History Medical History Relation Name Comments Heart disease Father Hypertension Father Prostate cancer Maternal Grandfather Heart disease Mother Hypertension Mother Heart attack Paternal Grandfather Relation Name Status Comments Father Maternal Grandfather Mother Paternal Grandfather Social History Tobacco Use Types Packs/Day Years Used Date Smoking Tobacco: Never Smokeless Tobacco: Current Chew Tobacco Cessation:Counseling Given: No Comments:goes through 1 can every 2 days AUDIT-C Answer Date Recorded Q1: How often do you have a drink containing alc ohol? 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 Not on file Not o n file Obstetrics History Last Filed Vital Signs Vital Sign Reading Time Taken Comments Blood Pressure 129/85 05/07/2021 12:35 PM CDT Pulse 60 05/07/2021 12:35 PM CDT Temperature 36.7 C (98.1 F) 05/07/2021 12:35 PM CDT Respiratory Rate 18 01/09/2021 12:17 PM CDT Oxygen Saturation 97% 05/07/2021 12:35 PM CDT Inhaled Oxygen Concentration - - Weight 94 kg (207 lb 5 oz) 05/07/2021 12:35 PM C DT Height 175.3 cm (5' 9) 05/07/2021 12:35 PM CDT Body Mass Index 30.61 05/07/2021 12:35 PM CDT Plan of Treatment Health Maintenance Due Date Last Done Comments Colon Cancer Screening-Colonoscopy 1965 Hepatitis C Screening 1965 Prostate Cancer Screening-PSA 1965 DTaP/Tdap/Td Vaccine (1 - Tdap) 11/24/1978 Hepatitis B Screening 11/24/1985 Regular Well Visit/Exam 18-64 11/24/1985 Zoster Vaccine (1 of 2) 11/24/2017 Depression Screening 12/28/2021 12/28/2020 Covid-19 Vaccine (3 - 2024-2 6 season) 2025 09/15/2020, 08/18/2020 Influenza Vaccine (#1) 2025 Pneumococcal vaccine <65 Aged Out No longer eligible based on patient's age to complete this topic Insurance [employer] [facility] Advance Directives For more information, please contact: [phone] * Full Code (Latest Code Status on File) Date Activated Date Inactivated Comments 12/28/2020 4:41 PM 01/09/2021 8:08 PM Care Teams Public Services Assistant Relationship Specialty Start Date End Date Unknown, Notinfile PCP - General 12/31/20
--- OUTSIDE RECORDS SUMMARY | 2025-05-02 12:27 | XMS_ITS | Encounter Summary ---
Author Organization [facility] Address [facility] [place] [address] Care Team Providers Care Chemist Intern Name Role Phone Juan Miguel Jacobo MD Unavailable [phone] Manish Bhatt MD Primary Care Provider [phone] Encounter Details Date Type Department Care Team (Late st Contact Info) Description 11/09/2019 Abstract [facility] at [address] [address] [place] Social History Tobacco Use Types Packs/Day Years Used Date Smoking Tobacco: Never Assessed Sex and Gender Information Value Date Recorded Sex Assigned at Not on file Legal Sex Male 8:01 AM CDT Gender Identity Not on file Sexual Orientation Not on file COVID-19 Exposure Response Date Recorded In the last month, have you been in contact with someone who was confirmed or suspected to have Coronavirus / COVID-19? Unable to assess 11/03/2019 11:47 AM CDT documented as of this encounter Plan of Treatment Not on file documented as of this encounter Procedures Procedure Name Priority Date/Time Associated Diagnosis Comments CBC (OUTSIDE LAB) Routine 10/16/2019 COMPREHENSIVE METABOLIC PANEL Routine 10/16/2019 D-DIMER, QUANTITATIVE Routine 10/16/2019 documented in this encounter Results * D-DIMER, QUANTITATIVE (10/16/2019) D-DIMER [id number] 215 500 10/16/2019 us Doc [facility] Abstract LABORATORY Final Result * (ABNORMAL) COMPREHENSIVE METABOLIC PANEL (10/16/2019) SODIUM S/P/B 140 POTASSIUM S/P/B 4.1 CO2 24 CHLORIDE S/P/B 103 GLUCOSE 97 mg/dL CALCIUM S/P/B 8.6 BUN 10 CREATININE S/P/B 1.2 0.7 - 1.3 EGFR AFR. AMER. 82 EGFR NON-AFR. AMER. 68 <=90 ALKALINE PHOSPHATASE S/P/B 63 ALT 34 AST 25 BILIRUBIN TOTAL S/P/B 0.4 ALBUMIN S/P/B 3.4(A) 3.5 - 5.0 TOTAL PROTEIN S/P/B 7.2 10/16/2019 us Doc [facility] LABORAT[facility] Final Result * CBC (OUTSIDE LAB) (10/16/2019) WBC 9.1 HGB 16.4 HCT 47.2 PLT 298 10/16/2019 us Doc [facility] Abstract LAB-OUTSIDE/ABSTRACTED Final Result documented in this encounter Visit Diagnoses Not on filedocumented in this encounter Additional Health Concerns Infection Onset Date Last Indicated Resolved Time COVID-19 Rule Out 09/04/2020 09/04/2020 06/24/2021 5:28 PM DYNAMICS AX SOLUTION ARCHITECT documented as of this encounter Care Teams Chemist Intern Relationship Specialty Start Date End Date Manish Bhatt MD [address] [place] [address] PCP - General FAMILY PRACTICE 11/02/19 Juan Miguel Jacobo MD [facility]. [facility] [address] [place] [address] [place] Coil Cleaner CARDIOVASCULAR DISEASE 11/01/19 documented as of this encounter
== END 2025-05-02 12:23 | disposition home or self-care (01) ==
LOC: CHSIMG 12:24
PROVIDERS: PCP Nurse Practitioner Family; Visit Provider Nurse Practitioner Family
DX: R41.3 Other amnesia (principal); I69.319 Unspecified symptoms and signs involving cognitive functions following cerebral infarction
CPT/HCPCS: 70450